=== PATIENT | female | born 1960 | race Caucasian/White ===

== ENCOUNTER 2016-05-10 11:12 | Outpatient (CLI) | payer OTHER ==
[~2016-05-10] VITALS: Ht 167.6 cm; Wt 88.6 kg
[2016-05-10 11:27] VITALS: BP 134/58; PULSE 51; RESP 18; Ht 167.6 cm; Wt 88.6 kg
--- NOTE | 2016-05-10 15:27 | PN ---
Date/Time of Note Date/Time of Note DATE: 05/10/16 TIME: 15:23 Outpatient Progress Note Chief Complaint Abdominal pain/ HPI Abdominal pain/patient had acute abdominal pain, mostly right side of the abdomen, moderately severe, associated with slight nausea, improved with the surgery, patient had appendectomy, no fever chills, Patient had a scar, slight small opening 1 x 1 mm top and bottom, no bleeding or discharge, Review of Systems Const: No Fever, no chills, no Wt. loss, no Fatigue, normal appetite, no diaphoresis. Eyes: No pain, no discharge, no redness, no visual change, no foreign body. ENT: No pain, no bleeding, no congestion, no sore throat, no dysphagia, no discharge or rhinitis. Lymph: No adenopathy, no tender nodes, no lymphedema. Resp: No SOB, no cough, no sputum, no wheezing, no chest pain. CV: No chest pain, no palpitaions, no WEISS, no PND, no edema. GI: Normal appetite, no pain, no nausea, no vomiting, no diarrhea, no blood, no constipation. : No frequency, no urgency, no dysuria, no hematuria, no flank pain, no discharge, no bleeding. Musc: No bone/joint pain, no back pain, no neck pain, no knee pain, no restricted ROM. Skin: No rash, no skin lesions, no erythema, no laceration, no bruising, no pruritus. Millimeters opening at the top and bottom of the scar of appendectomy ,, no bleeding or discharge, Neuro: No PEDRO, no dizziness, no syncope, no seizure, no focal-weakness. Endo: No polyuria, no polydypsia, no dry-skin, no temp-intolerance. Psych: No hallucinations, no depression, no anxiety, no suicidal ideation. Ext: No edema, no pain, no ulcer, no weakness. Physical Exam Vital Signs Date Time Temp Pulse Resp B/P Pulse Ox O2 Delivery O2 Flow Rate FiO2 05/10/16 11:27 98.0 51 18 134/58 96 Room Air General Appearance: A 55 year-old [female who appears well-developed, well- nourished, in no acute distress. HEENT: Head normocephalic, atraumatic. Pupils equal, round, reactive to light and accommodate. Sclerae are no jaundice. Nasal turbinates pink without erythema or nasal discharge. Mucous membranes pink and moist without lesions. Oropharynx clear without any exudate or discharge. NECK: Supple. Trachea midline, No thyromegaly, No cervical lymphadenopathy, No mass, No carotid bruits, No JVD, Carotid pulses 2+ bilaterally. PULMONARY: Clear to auscultaion bilaterally, No retractions, Chest expansion symmetric bilaterally, no rales, no ronchi, no dulness on percussion. CARDIAC: Normal SI and S2, Regular rate and rythm, no murmur, gallop, or rub. GASTROINTESTINAL: Abdomen is soft, non-tender, Non Rigid, No distention, Positive bowel sounds x4 quadrants, Liver normal. Patient has a scar of recent surgery, There is small opening 1 x 1 mm at the top and bottom, no bleeding or discharge , local dressing applied, SKIN: Warm, dry, no rash, no bruise, no echmosis. EXTREMITIES: Bilateral lower extremities normal, no edema, no phlabitus, pulse palpable, no contracture. MUSCULOSKELETAL: Spine Normal, Non-tender, Normal range of motion, No swelling, no deformity, no clubbing, or cyanosis, the patient has no edema to bilateral lower extremities, dorsalis pedis pulses palpable bilaterally. NEUROLOGIC: The patient is awake, alert, oriented, responding to yes/no questions appropriately, moving all extremities, cranial nerve intact, normal strenght, normal power, normal coordination, normal gait. Allergies Coded Allergies: acetaminophen (Verified Allergy, Unknown, 05/10/16) ibuprofen (Verified Allergy, Unknown, 05/10/16) PMH Abdominal pain/status post appendectomy Social Hx No smoking or drinking, Family Hx Noncontributory Assessment/Plan Impression Abdominal pain resolved/status post appendectomy, Plan Continue all activity, local dressing applied, Patient was seen by surgery, Patient to follow with the primary care physician, patient has pain medication, no need for any medication at present, if any problem to call us or call primary physician, MICKIE WINN MD May 10, 2016 15:27
== END 2016-05-11 13:15 | disposition home or self-care (01) ==
LOC: DCC 11:12
PROVIDERS: ATTEND Internal Medicine
DX: R10.9 Unspecified abdominal pain (principal); Z98.890 Other specified postprocedural states